=== PATIENT | male | born 1935 | race Caucasian/White ===

== ENCOUNTER 2019-03-31 17:52 | Inpatient (IN) | payer MEDICARE ==
[~2019-03-31] VITALS: Ht 175.3 cm; Wt 75.3 kg
--- NOTE | 2019-03-31 17:52 | NUR ---
Patient is AOx4, respiration:easy c/o dizziness for 1 month. On arrival, patient immediately wanted to use the phone/cellphone. "I am expecting a call. Can I use the phone before you examine me?" per patient's verbalization. Comfort and safety measures maintained.
--- NOTE | 2019-03-31 18:11 | NUR ---
Patient is heard using his cellphone still, NAD, pending MD evaluation.
--- NOTE | 2019-03-31 18:44 | NUR ---
Dr Page is at bedside, MSE in progress.
[2019-03-31] MEDS ORDERED: IV NORMAL SALINE 1000 ML BAG IV ONE (18:45)
--- NOTE | 2019-03-31 18:57 | NUR ---
Patient ambulated to bathroom with slow steady gait, unassisted, pending results and disposition
[2019-03-31 19:01] LABS: BASOPHILS % (AUTO) 0.2 % (0.0-2.0); EOSINOPHILS # (AUTO) 0.1 K/uL (0.0-0.7); EOSINOPHILS % (AUTO) 0.9 % (0.0-7.0); HEMATOCRIT 45.7 % (36.7-47.1); HEMOGLOBIN 15.3 g/dL (12.5-16.3); LYMPHOCYTES # (AUTO) 1.1 K/uL (20.0-40.0); LYMPHOCYTES % (AUTO) 13.4 % (20.5-51.5); MEAN CORPUSCULAR HEMOGLOBIN 31.4 uug (23.8-33.4); MEAN CORPUSCULAR HGB CONC 33 g/dL (32.5-36.3); MEAN CORPUSCULAR VOLUME 94.1 fL (73.0-96.2); MONOCYTES # (AUTO) 0.7 K/uL (2.0-10.0); MONOCYTES % (AUTO) 8.6 % (0.0-11.0); NEUTROPHILS # (AUTO) 6.1 K/uL (1.8-8.9); NEUTROPHILS % (AUTO) 76.9 % (38.5-71.5); PLATELET COUNT (AUTO) 218 K/uL (152-348); RED BLOOD CELL COUNT(AUTO) 4.86 MIL/uL (4.06-5.63)
--- NOTE | 2019-03-31 19:01 | NUR ---
still for IV fluids, CT scan, chest x-ray, endorsed to CLARK Mcgee accordingly
--- NOTE | 2019-03-31 19:05 | NUR ---
Xray at bedside.
[2019-03-31 19:06] LABS: *BILIRUBIN,URIN NEGATIVE (NEGATIVE); *CLARITY,URINE CLEAR (CLEAR); *COLOR,URINE YELLOW (YELLOW); *KETONES,URINE 1+ (NEGATIVE); *UROBILINOGEN,URINE 0.2 E.U./dl (NORMAL); LEUKOCYTE ESTERASE ,URINE NEGATIVE (NEGATIVE); NITRITE, URINE NEGATIVE (NEGATIVE); PH,URINE 6.5 (5.0-8.0); UGLUCOSE NEGATIVE (NEGATIVE)
--- NOTE | 2019-03-31 19:08 | NUR ---
Pt out of ER for CT.
[2019-03-31 19:18] LABS: BILIRUBIN,DIRECT 0.2 mg/dL (0.0-0.2); CREATININE 1.1 mg/dL (0.6-1.3); POTASSIUM 3.7 mmol/L (3.5-5.1); TOTAL PROTEIN, SERUM 7.4 g/dL (6.4-8.2)
--- NOTE | 2019-03-31 19:18 | NUR ---
Pt back to ER from CT.
[2019-03-31] MEDS ORDERED: ONDANSETRON 4 MG/2 ML VIAL ONE (19:26)
[2019-03-31] MEDS ORDERED: MECLIZINE HCL 25 MG TABLET ONE (19:27)
[2019-03-31 19:29] LABS: *BLOOD, URINE TRACE (NEGATIVE)
[2019-03-31] MEDS ORDERED: MECLIZINE HCL 25 MG TABLET PO ONE (19:30)
[2019-03-31] MEDS ORDERED: ONDANSETRON 4 MG/2 ML VIAL IV ONE (19:30)
[2019-03-31 19:37] LABS: MUCUS,URINE MODERATE /LPF (0-FEW); RBC,URINE 0-3 /HPF (0-3); WBC,URINE 0-3 /HPF (0-3)
[2019-03-31 19:44] LABS: THYROID STIMULATING HORMONE 2.262 mIU/mL (0.358-3.740)
--- NOTE | 2019-03-31 20:29 | NUR ---
Called [facility] to page Geovanny Cavazos NP
--- NOTE | 2019-03-31 20:30 | NUR ---
Pt provided with Peanut butter jelly sandwich per pt request.
--- NOTE | 2019-03-31 20:40 | NUR ---
Noman Cavazos TRAFFIC ADMINISTRATOR at bedside.
--- NOTE | 2019-03-31 20:57 | NUR ---
Report given to Dalia RODAS Medsurg.
[2019-03-31 21:03] LABS: *AMPHETAMINE, URINE NEGATIVE (NEGATIVE); *BARBITURATE, URINE NEGATIVE (NEGATIVE); *CANNABINOID, URINE NEGATIVE (NEGATIVE); *COCCAINE, URINE NEGATIVE (NEGATIVE); *OPIATE, URINE NEGATIVE (NEGATIVE); *PHENCYCLIDINE SCREEN,URINE NEGATIVE (NEGATIVE)
[2019-03-31 21:07] LABS: ETHANOL < 3 MG/DL (0-0)
[2019-03-31 21:08] LABS: ACETAMINOPHEN < 2.0 ug/mL (10-30)
[2019-03-31] MEDS ORDERED: LORAZEPAM 0.5 MG TABLET PO ONE (21:15)
[2019-03-31] MEDS ORDERED: LORAZEPAM 1 MG TABLET ONE (21:15)
[2019-03-31 21:47] VITALS: BP 129/75
[2019-03-31] MEDS ORDERED: ACETAMINOPHEN 325 MG TABLET PO PRN (22:00)
[2019-03-31] MEDS ORDERED: MAGNESIUM HYDROXIDE 30 ML LIQUID UDC PO PRN (22:00)
[2019-03-31] MEDS ORDERED: HYDROCODONE/APAP 5-325MG TABLET PO PRN (22:00)
[2019-03-31] MEDS ORDERED: Z GUARD REMEDY PASTE 57 GM TUBE TOP PRN (22:00)
[2019-03-31] MEDS ORDERED: MORPHINE SULFATE 2 MG/1 ML DISP.SYRIN IV PRN (22:00)
--- NOTE | 2019-03-31 22:20 | NUR ---
received report from night nurse.
[2019-03-31] MEDS: ENOXAPARIN SODIUM 40 MG/0.4 ML DISP.SYRIN SQ SCH (22:29)
[2019-03-31] MEDS: TEMAZEPAM 15 MG CAPSULE PO PRN (22:29)
[2019-03-31] MEDS: IV NS 1000 ML 1,000 ML IV PRN (22:30)
--- NOTE | 2019-04-01 05:07 | NUR ---
patient received in bed watching TV. Completed admissions process. Patient refused to change into hospital gown and refused skin check. compliant with medications administration for the night and temazepam requested by patient and administered. pharmacy contacted for medication reconciliation but closed for the night. will endorse to morning nurse to f/u with pharmacy as they open at 9am. all needs met. will continue to monitor and endorse care accordingly.
[2019-04-01 05:22] VITALS: BP 137/81
[2019-04-01] MEDS: ONDANSETRON 4 MG/2 ML VIAL IV PRN ×2 (05:37→15:00)
[2019-04-01] MEDS: PANTOPRAZOLE SODIUM 40 MG TABLET.DR PO SCH (06:11)
[2019-04-01 06:52] LABS: BASOPHILS % (AUTO) 0.3 % (0.0-2.0); EOSINOPHILS # (AUTO) 0.2 K/uL (0.0-0.7); EOSINOPHILS % (AUTO) 3.2 % (0.0-7.0); HEMATOCRIT 42.6 % (36.7-47.1); HEMOGLOBIN 13.8 g/dL (12.5-16.3); LYMPHOCYTES # (AUTO) 1.9 K/uL (20.0-40.0); LYMPHOCYTES % (AUTO) 33.9 % (20.5-51.5); MEAN CORPUSCULAR HEMOGLOBIN 31.5 uug (23.8-33.4); MEAN CORPUSCULAR HGB CONC 32 g/dL (32.5-36.3); MEAN CORPUSCULAR VOLUME 97.4 fL (73.0-96.2); MONOCYTES # (AUTO) 0.8 K/uL (2.0-10.0); MONOCYTES % (AUTO) 13.3 % (0.0-11.0); NEUTROPHILS # (AUTO) 2.8 K/uL (1.8-8.9); NEUTROPHILS % (AUTO) 49.3 % (38.5-71.5); PLATELET COUNT (AUTO) 178 K/uL (152-348); RED BLOOD CELL COUNT(AUTO) 4.37 MIL/uL (4.06-5.63); WHITE BLOOD COUNT (AUTO) 5.7 K/uL (3.6-10.2)
[2019-04-01 07:18] LABS: BILIRUBIN,TOTAL 0.9 mg/dL (0.2-1.0); MAGNESIUM 2.1 mg/dL (1.8-2.4); PHOSPHOROUS 2.8 mg/dL (2.5-4.9); POTASSIUM 4.2 mmol/L (3.5-5.1); TOTAL PROTEIN, SERUM 6.2 g/dL (6.4-8.2)
[2019-04-01 08:17] LABS: THYROID STIMULATING HORMONE 3.324 mIU/mL (0.358-3.740)
--- NOTE | 2019-04-01 08:30 | NUR ---
PATIENT IS STILL WEARING HIS CLOTHES FROM HOME REFUSED TO CHANGE INTO A HOSPITAL GOWN AT THIS TIME PATIENTS WISHES RESPECTED.
[2019-04-01] MEDS: MECLIZINE HCL 25 MG TABLET PO PRN ×2 (08:48→17:05)
[2019-04-01] MEDS: METOCLOPRAMIDE HCL 10 MG/2 ML VIAL IV PRN ×2 (08:48→17:05)
--- NOTE | 2019-04-01 08:48 | NUR ---
PATIENT C/O FEELING DIZZY AND HAS NAUSEA [facility] [employer] ORDER CLERK NOTIFIED WITH NEW ORDERS ANTIVERT AND REGLAN GIVEN ORDERED AND LUIS OBSERVE.
[2019-04-01] MEDS: LORAZEPAM 2 MG/1 ML VIAL IV PRN ×2 (09:10→20:55)
--- NOTE | 2019-04-01 09:10 | NUR ---
PATIENT IS VERY ANXIOUS CALLING EVERY 5 MINS FOR ONE THING OR THE OTHER AND RESTLESS SEEN BY ARMANDO BOWDEN WITH ORDER ATIVAN GIVEN ORDERED WILL OBSERVE.
[2019-04-01 11:45] VITALS: BP 135/76
[2019-04-01] MEDS: LOSARTAN POTASSIUM 25 MG TABLET PO SCH (12:58)
--- NOTE | 2019-04-01 13:30 | NUR ---
PATIENT STATED TAKES MEDICATIONS FOR BLOOD PRESSURE AND CHOLESTEROL BUT DOES NOT REMEMBER THE NAMES [facility] AND SHE GAVE ME THE NAMES OF LORSARTAN AND ATROVASTATIN AND THE DOSAGES CALLED [facility] VP [employer]ET[employer] WITH ORDERS.
--- NOTE | 2019-04-01 14:43 | NUR ---
PATIENT REASSIGNMENT REPORT GIVEN TO BREE FOR CONTINUING CARE.
[2019-04-01] MEDS ORDERED: ATOR10TA PO (14:52)
[2019-04-01] MEDS ORDERED: LOSA25TA3 PO (14:52)
[2019-04-01 15:49] VITALS: BP 132/84
[2019-04-01] MEDS: IV NS 1000 ML 1,000 ML IV PRN (18:40)
[2019-04-01 20:33] VITALS: BP 120/64
[2019-04-01] MEDS: ENOXAPARIN SODIUM 40 MG/0.4 ML DISP.SYRIN SQ SCH (20:55)
[2019-04-01] MEDS ORDERED: ATORVASTATIN 10 MG TABLET PO SCH (21:00)
[2019-04-01] MEDS: TEMAZEPAM 15 MG CAPSULE PO PRN (22:23)
[2019-04-02] MEDS: ONDANSETRON 4 MG/2 ML VIAL IV PRN ×2 (02:41→09:09)
[2019-04-02] MEDS: MECLIZINE HCL 25 MG TABLET PO PRN ×3 (02:41→17:21)
[2019-04-02 04:53] VITALS: BP 135/76
[2019-04-02] MEDS: PANTOPRAZOLE SODIUM 40 MG TABLET.DR PO SCH (06:31)
--- NOTE | 2019-04-02 06:48 | NUR ---
PATIENT SLEPT WELL LAST NIGHT. THIS MORNING DOES NOT COMPLAIN OF ANY DIZZINESS OR NAUSEA. PATIENT IS ALERT AND IS IN NO DISTRESS. FALL PRECAUTIONS OBSERVED. ENDORSED TO AM NURSE.
[2019-04-02 06:51] LABS: BASOPHILS % (AUTO) 0.2 % (0.0-2.0); EOSINOPHILS # (AUTO) 0.2 K/uL (0.0-0.7); EOSINOPHILS % (AUTO) 3.3 % (0.0-7.0); HEMATOCRIT 42.2 % (36.7-47.1); HEMOGLOBIN 13.9 g/dL (12.5-16.3); LYMPHOCYTES # (AUTO) 1.7 K/uL (20.0-40.0); LYMPHOCYTES % (AUTO) 29.6 % (20.5-51.5); MEAN CORPUSCULAR HEMOGLOBIN 31.9 uug (23.8-33.4); MEAN CORPUSCULAR HGB CONC 33 g/dL (32.5-36.3); MEAN CORPUSCULAR VOLUME 97.1 fL (73.0-96.2); MONOCYTES # (AUTO) 0.7 K/uL (2.0-10.0); MONOCYTES % (AUTO) 11.5 % (0.0-11.0); NEUTROPHILS # (AUTO) 3.2 K/uL (1.8-8.9); NEUTROPHILS % (AUTO) 55.4 % (38.5-71.5); PLATELET COUNT (AUTO) 185 K/uL (152-348); RED BLOOD CELL COUNT(AUTO) 4.35 MIL/uL (4.06-5.63); WHITE BLOOD COUNT (AUTO) 5.7 K/uL (3.6-10.2)
[2019-04-02 07:06] LABS: CARBON DIOXIDE 26 mmol/L (21-32); CHLORIDE 107 mmol/L (98-107); CREATININE 0.9 mg/dL (0.6-1.3); GLUCOSE 94 mg/dL (74-106); POTASSIUM 4.1 mmol/L (3.5-5.1); UREA NITROGEN, BLOOD 14 mg/dL (7-18)
[2019-04-02] MEDS: LOSARTAN POTASSIUM 25 MG TABLET PO SCH (09:04)
[2019-04-02] MEDS: METOCLOPRAMIDE HCL 10 MG/2 ML VIAL IV PRN ×2 (11:05→17:21)
[2019-04-02 12:00] VITALS: BP 142/84
[2019-04-02 16:00] VITALS: BP 153/90
--- NOTE | 2019-04-02 18:00 | NUR ---
RECEIVED DISCHARGE ORDER TO HOME VIA PRIVATE CAR WITH FRIEND SCOTT, DISCHARGE INSTRUCTION GIVEN AND VERBALIZED UNDERSTANDING. BELONGINGS ACCOUNTED FOR AND SIGNED, IV AND ID BAND REMOVED, QUESTION AND CONCERNS ADDRESSED, NO SOB NOTED NO C/O PAIN. PATIENT DISCHARGE WITH SATISFACTION
== END 2019-04-02 17:55 | disposition home health service (06) | DRG 641 ==
LOC: ER 17:54 → MEDSURG3 21:20
PROVIDERS: ADMIT Nurse Practitioner Acute Care; ATTEND Nurse Practitioner Acute Care
DX: E86.0 Dehydration (principal); D68.59 Other primary thrombophilia; R64 Cachexia; J98.11 Atelectasis; R42 Dizziness and giddiness; F39 Unspecified mood [affective] disorder; F41.9 Anxiety disorder, unspecified; K21.9 Gastro-esophageal reflux disease without esophagitis; F09 Unspecified mental disorder due to known physiological condition; E78.5 Hyperlipidemia, unspecified; I10 Essential (primary) hypertension; I70.0 Atherosclerosis of aorta; E78.00 Pure hypercholesterolemia, unspecified; Z74.09 Other reduced mobility; B34.9 Viral infection, unspecified; R11.2 Nausea with vomiting, unspecified
CPT/HCPCS: 36415; 70030-TC; 70450; 71045; 80307; 83550; 83605; 83735; 84100; 84443; 85025; 85730; 87040; 87086; 93005; A4663; G0378; G0480; G0480-TC; J1650; J2060; J2405; J2765; J7030; J8597

== ENCOUNTER 2019-05-12 17:51 | Emergency (ER) | payer MEDICARE ==
[~2019-05-12] VITALS: Ht 172.7 cm; Wt 68.9 kg
--- NOTE | 2019-05-12 18:36 | NUR ---
Patient discharged to home in stable conditon. Written and verbal after care instructions given. Patient verbalizes understanding of instructions. Patient ambulated with stable gait.
[2019-05-12 18:38] VITALS: BP 145/89
== END 2019-05-12 18:38 | disposition home or self-care (01) ==
LOC: ER 17:53
DX: T16.2XXA Foreign body in left ear, initial encounter (principal); Y93.89 Activity, other specified; Y92.89 Other specified places as the place of occurrence of the external cause; Y99.8 Other external cause status
CPT/HCPCS: A4663

== ENCOUNTER 2019-05-17 16:50 | Emergency (ER) | payer MEDICARE ==
[~2019-05-17] VITALS: Ht 175.3 cm; Wt 72.6 kg
--- NOTE | 2019-05-17 17:13 | NUR ---
PT IS IN ROOM #1A. DR BEATTY EVALUATED THE PT.
--- NOTE | 2019-05-17 17:53 | NUR ---
PT WAS D/C'd TO HOME. D/C INSTRUCTIONS GIVEN TO THE PT.
[2019-05-17 17:54] VITALS: BP 142/81
== END 2019-05-17 17:54 | disposition home or self-care (01) ==
LOC: ER 16:53
DX: S02.2XXA Fracture of nasal bones, initial encounter for closed fracture (principal); E78.5 Hyperlipidemia, unspecified; K21.9 Gastro-esophageal reflux disease without esophagitis; F32.9 Major depressive disorder, single episode, unspecified; Z88.8 Allergy status to other drugs, medicaments and biological substances; Z79.899 Other long term (current) drug therapy; W17.89XA Other fall from one level to another, initial encounter; Y93.89 Activity, other specified; Y92.89 Other specified places as the place of occurrence of the external cause; Y99.8 Other external cause status
CPT/HCPCS: 70160; A4663

== ENCOUNTER 2019-12-28 10:54 | Emergency (ER) | payer MEDICARE ==
[~2019-12-28] VITALS: Ht 177.8 cm; Wt 81.6 kg
[~2019-12-28 10:54] MED LIST: ATOR10TA PO; LOSA25TA3 PO
--- NOTE | 2019-12-28 10:54 | NUR ---
Patient ambulating with steady gait. A&O x4. c/o left sided rib pain s/p mechanical fall yesterday. Denies any LOC or hitting head. Patient hard of hearing but speech is clear and able to make needs known / follow commands. Breathing even and unlabored. Denies any cough or SOB noted. No visible injuries noted. safety precautions implemented. s/r up x2
--- NOTE | 2019-12-28 10:54 | NUR ---
Dr. Aleman at bedside for MSE
[2019-12-28] MEDS ORDERED: OXYCODONE/APAP 5-325 MG TABLET ONE (11:42)
--- NOTE | 2019-12-28 11:44 | NUR ---
Patient discharged to home in stable condition. Written and verbal after care instructions given. Patient verbalizes understanding of instructions. Stressed follow up or return to ER for worsening s/s. Patient ambulated with steady gait. NAD noted. Patient's caregiver outside of ED to take patient home
[2019-12-28] MEDS ORDERED: OXYCODONE/APAP 5-325 MG TABLET PO ONE (11:45)
[2019-12-28 12:23] VITALS: BP 112/63
== END 2019-12-28 11:44 | disposition home or self-care (01) ==
LOC: ER 10:54
DX: S22.41XA Multiple fractures of ribs, right side, initial encounter for closed fracture (principal); W18.30XA Fall on same level, unspecified, initial encounter; Y92.89 Other specified places as the place of occurrence of the external cause; K21.9 Gastro-esophageal reflux disease without esophagitis; E78.00 Pure hypercholesterolemia, unspecified
CPT/HCPCS: 71101; A4663

== ENCOUNTER 2020-01-01 14:44 | Emergency (ER) | payer MEDICARE ==
[~2020-01-01] VITALS: Ht 177.8 cm; Wt 81.6 kg
--- NOTE | 2020-01-01 16:24 | NUR ---
Patient does not wish to proceed with medical care recommended by Dr. Black. Patient given information related to possible complications, up to and including , which could occur as a result of leaving the hospital at this time. Patient verbalizes understanding of risks involved due to leaving against medical advice. Patient has signed AMA form. Written and verbal after care instructions given. Patient verbalizes understanding of instructions. Stressed follow up or return to ER for worsening s/s.
== END 2020-01-01 16:27 | disposition left against medical advice (07) ==
LOC: ER 14:44
DX: S22.41XD Multiple fractures of ribs, right side, subsequent encounter for fracture with routine healing (principal); W18.30XD Fall on same level, unspecified, subsequent encounter; Z91.81 History of falling; E78.5 Hyperlipidemia, unspecified; K21.9 Gastro-esophageal reflux disease without esophagitis; M19.90 Unspecified osteoarthritis, unspecified site; I10 Essential (primary) hypertension; Z79.899 Other long term (current) drug therapy
CPT/HCPCS: 71101; A4663

== ENCOUNTER 2024-01-26 07:39 | Inpatient (IN) | payer MEDICARE ==
[~2024-01-26] VITALS: Ht 172.7 cm; Wt 72.6 kg
[2024-01-26] MEDS ORDERED: ATOR10TA PO (08:15)
[2024-01-26] MEDS ORDERED: LOSA25TA27 PO (08:15)
[2024-01-26] MEDS ORDERED: LORAZEPAM 2 MG/1 ML VIAL ONE (08:31)
[2024-01-26] MEDS: LORAZEPAM 2 MG/1 ML VIAL IV ONE (08:32)
[2024-01-26] MEDS: IV NORMAL SALINE 1000 ML BAG IV ONE (08:32)
[2024-01-26 08:43] LABS: BASOPHILS # (AUTO) 0.2 K/UL (0.0-0.2); BASOPHILS % (AUTO) 1.9 % (0.0-2.0); EOSINOPHILS # (AUTO) 0.1 K/uL (0.0-0.7); EOSINOPHILS % (AUTO) 0.9 % (0.0-7.0); HEMATOCRIT 37.4 % (36.7-47.1); HEMOGLOBIN 12.5 g/dL (12.5-16.3); LYMPHOCYTES % (AUTO) 8.9 % (20.5-51.5); MEAN CORPUSCULAR HEMOGLOBIN 31.6 uug (23.8-33.4); MEAN CORPUSCULAR HGB CONC 34 g/dL (32.5-36.3); MEAN CORPUSCULAR VOLUME 94.3 fL (73.0-96.2); MONOCYTES % (AUTO) 9.2 % (0.0-11.0); NEUTROPHILS # (AUTO) 8.7 K/uL (1.8-8.9); NEUTROPHILS % (AUTO) 79.1 % (38.5-71.5); PLATELET COUNT (AUTO) 207 K/uL (152-348); RED BLOOD CELL COUNT(AUTO) 3.97 MIL/uL (4.06-5.63); RED CELL DISTRIBUTION WIDTH 14.5 % (12.1-16.2); WHITE BLOOD COUNT (AUTO) 10.9 K/uL (3.6-10.2)
[2024-01-26 08:44] LABS: DIFFERENTIAL COMMENT 1
[2024-01-26 08:53] LABS: CALCIUM 9.2 mg/dL (8.5-10.1); CARBON DIOXIDE 27 mmol/L (21-32); CHLORIDE 103 mmol/L (98-107); CREATININE 1.5 mg/dL (0.6-1.3); GLUCOSE 139 mg/dL (74-106); POTASSIUM 4.4 mmol/L (3.5-5.1); SODIUM SERUM 140 mmol/L (136-145); UREA NITROGEN, BLOOD 30 mg/dL (7-18)
[2024-01-26 08:57] LABS: *BILIRUBIN,URIN NEGATIVE (NEGATIVE); *BLOOD, URINE NEGATIVE (NEGATIVE); *CLARITY,URINE CLEAR (CLEAR); *COLOR,URINE YELLOW (YELLOW); *KETONES,URINE 1+ (NEGATIVE); *PROTEIN,URINE TRACE (NEGATIVE); *UROBILINOGEN,URINE 0.2 E.U./dl (NORMAL); LEUKOCYTE ESTERASE ,URINE NEGATIVE (NEGATIVE); NITRITE, URINE NEGATIVE (NEGATIVE); UGLUCOSE NEGATIVE (NEGATIVE)
[2024-01-26 08:58] LABS: BACTERIA,URINE FEW /HPF (NONE SEEN); WBC,URINE 0-3 /HPF (0-3)
[2024-01-26 09:09] LABS: ALANINE AMINOTRANSFERASE 41 U/L (16-63); ALBUMIN 3.5 g/dL (3.4-5.0); ALKALINE PHOSPHATASE 100 U/L (50-136); ASPARTATE AMINOTRANSFERASE 61 U/L (15-37); BILIRUBIN,DIRECT 0.4 mg/dL (0.0-0.2); BILIRUBIN,TOTAL 1.7 mg/dL (0.2-1.0); NT-PRO BNP 972 pg/mL (0-125); TOTAL PROTEIN, SERUM 7.1 g/dL (6.4-8.2)
[2024-01-26 09:20] LABS: BAND % (MANUAL) 5 % (0-10); EOSINOPHILS % (MANUAL) 1 % (0-8); LYMPHOCYTES % (MANUAL) 14 % (20-40); METAMYELOCYTES % 2 % (0-1); MONOCYTES % (MANUAL) 9 % (2-10); NEUTROPHILS % (MANUAL) 69 % (42-75); PLATELET ESTIMATE ADEQUATE
[2024-01-26 11:52] VITALS: BP 155/82; TEMP 97.3; O2SAT 95
[2024-01-26] MEDS ORDERED: LAMO200T10 PO (11:52)
[2024-01-26] MEDS ORDERED: PHEN15TA15 PO (11:55)
[2024-01-26] MEDS ORDERED: ONDANSETRON 4 MG/2 ML VIAL IV PRN (13:45)
[2024-01-26] MEDS: LOSARTAN POTASSIUM 25 MG TABLET PO SCH (13:45)
[2024-01-26] MEDS: LAMOTRIGINE 200 MG TABLET PO SCH (13:45)
[2024-01-26 14:10] VITALS: BP 140/84; TEMP 97.2; O2SAT 98
[2024-01-26 14:12] VITALS: BP 141/74; O2SAT 95
[2024-01-26 14:14] VITALS: BP 123/89; O2SAT 95
[2024-01-26 16:20] VITALS: O2SAT 95
[2024-01-26] MEDS: IV NS 1000 ML 1,000 ML IV PRN (17:53)
[2024-01-26 19:00] VITALS: BP 150/89; TEMP 97.9; O2SAT 95
[2024-01-26] MEDS: ENOXAPARIN SODIUM 40 MG/0.4 ML DISP.SYRIN SQ SCH (20:39)
[2024-01-26] MEDS: ACETAMINOPHEN 325 MG TABLET PO PRN (20:42)
[2024-01-27] VITALS (7 sets, daily range): BP systolic 128–171; BP diastolic 87–94; TEMP 97.7–98.7; O2SAT 94–97
[2024-01-27] MEDS: ZOLPIDEM 5 MG TABLET PO PRN (00:28)
[2024-01-27 06:46] LABS: BASOPHILS % (AUTO) 0.3 % (0.0-2.0); EOSINOPHILS % (AUTO) 0.5 % (0.0-7.0); HEMATOCRIT 37.1 % (36.7-47.1); HEMOGLOBIN 12.5 g/dL (12.5-16.3); LYMPHOCYTES # (AUTO) 1.3 K/uL (0.8-4.8); LYMPHOCYTES % (AUTO) 15.1 % (20.5-51.5); MEAN CORPUSCULAR HEMOGLOBIN 31.4 uug (23.8-33.4); MEAN CORPUSCULAR HGB CONC 34 g/dL (32.5-36.3); MEAN CORPUSCULAR VOLUME 93.1 fL (73.0-96.2); MONOCYTES # (AUTO) 1.2 K/uL (0.1-1.30); MONOCYTES % (AUTO) 14.5 % (0.0-11.0); NEUTROPHILS # (AUTO) 5.8 K/uL (1.8-8.9); NEUTROPHILS % (AUTO) 69.6 % (38.5-71.5); PLATELET COUNT (AUTO) 218 K/uL (152-348); RED BLOOD CELL COUNT(AUTO) 3.99 MIL/uL (4.06-5.63); RED CELL DISTRIBUTION WIDTH 14.1 % (12.1-16.2); WHITE BLOOD COUNT (AUTO) 8.3 K/uL (3.6-10.2)
[2024-01-27 06:54] LABS: DIFFERENTIAL COMMENT 1
[2024-01-27] MEDS ORDERED: CLON2TAB PO (06:54)
[2024-01-27 07:05] LABS: CALCIUM 8.7 mg/dL (8.5-10.1); CARBON DIOXIDE 26 mmol/L (21-32); CHLORIDE 104 mmol/L (98-107); CREATININE 1.3 mg/dL (0.6-1.3); GLUCOSE 132 mg/dL (74-106); PHOSPHOROUS 2.9 mg/dL (2.5-4.9); POTASSIUM 4.2 mmol/L (3.5-5.1); SODIUM SERUM 138 mmol/L (136-145); UREA NITROGEN, BLOOD 22 mg/dL (7-18)
[2024-01-27] MEDS ORDERED: ATORVASTATIN 10 MG TABLET PO SCH (09:00)
[2024-01-27] MEDS: CLONAZEPAM 1 MG TABLET PO SCH (09:55)
[2024-01-27] MEDS: PHENELZINE SULFATE 15 MG PO SCH (09:56)
[2024-01-27] MEDS: QUETIAPINE FUMARATE 25 MG TABLET PO ONE (13:41)
[2024-01-27] MEDS ORDERED: PHENELZINE SULFATE PO SCH (13:45)
[2024-01-27] MEDS: ATORVASTATIN 10 MG TABLET PO SCH (20:25)
[2024-01-27] MEDS: TRAZODONE 50 MG TABLET PO SCH (21:10)
[2024-01-28] VITALS (8 sets, daily range): BP systolic 117–152; BP diastolic 64–87; TEMP 97.6–98.8; O2SAT 91–98
[2024-01-28] MEDS ORDERED: ZOLPIDEM 5 MG TABLET PO PRN (09:45)
[2024-01-28] MEDS: LORAZEPAM 1 MG TABLET PO PRN (14:28)
[2024-01-28 18:00] LABS: BASOPHILS # (AUTO) 0.1 K/UL (0.0-0.2); BASOPHILS % (AUTO) 1.5 % (0.0-2.0); EOSINOPHILS # (AUTO) 0.1 K/uL (0.0-0.7); EOSINOPHILS % (AUTO) 1.4 % (0.0-7.0); HEMOGLOBIN 12.1 g/dL (12.5-16.3); LYMPHOCYTES # (AUTO) 1.2 K/uL (0.8-4.8); LYMPHOCYTES % (AUTO) 13.5 % (20.5-51.5); MEAN CORPUSCULAR HEMOGLOBIN 31.5 uug (23.8-33.4); MEAN CORPUSCULAR HGB CONC 34 g/dL (32.5-36.3); MEAN CORPUSCULAR VOLUME 93.7 fL (73.0-96.2); MONOCYTES # (AUTO) 0.9 K/uL (0.1-1.30); NEUTROPHILS # (AUTO) 6.7 K/uL (1.8-8.9); NEUTROPHILS % (AUTO) 73.6 % (38.5-71.5); PLATELET COUNT (AUTO) 201 K/uL (152-348); RED BLOOD CELL COUNT(AUTO) 3.84 MIL/uL (4.06-5.63); RED CELL DISTRIBUTION WIDTH 14.3 % (12.1-16.2); WHITE BLOOD COUNT (AUTO) 9.1 K/uL (3.6-10.2)
[2024-01-28 18:04] LABS: DIFFERENTIAL COMMENT 1
[2024-01-28 18:17] LABS: CALCIUM 8.4 mg/dL (8.5-10.1); CARBON DIOXIDE 24 mmol/L (21-32); CHLORIDE 107 mmol/L (98-107); CREATININE 1.2 mg/dL (0.6-1.3); GLUCOSE 96 mg/dL (74-106); MAGNESIUM 2.1 mg/dL (1.8-2.4); PHOSPHOROUS 2.6 mg/dL (2.5-4.9); POTASSIUM 3.5 mmol/L (3.5-5.1); SODIUM SERUM 143 mmol/L (136-145); UREA NITROGEN, BLOOD 20 mg/dL (7-18)
[2024-01-29] MEDS: QUETIAPINE FUMARATE 25 MG TABLET PO PRN (00:03)
[2024-01-29] MEDS: OLANZAPINE 10 MG VIAL IM ONE (00:54)
[2024-01-29 04:30] VITALS: O2SAT 98
[2024-01-29 05:02] VITALS: BP 144/112; TEMP 98.9; O2SAT 91
[2024-01-29] MEDS: LORAZEPAM 2 MG/1 ML VIAL IM ONE (05:24)
[2024-01-29] MEDS: diphenhydrAMINE 50 MG/1 ML VIAL IM ONE (05:25)
[2024-01-29 06:51] LABS: BASOPHILS % (AUTO) 0.1 % (0.0-2.0); EOSINOPHILS % (AUTO) 0.4 % (0.0-7.0); HEMATOCRIT 37.2 % (36.7-47.1); HEMOGLOBIN 12.8 g/dL (12.5-16.3); LYMPHOCYTES # (AUTO) 0.8 K/uL (0.8-4.8); LYMPHOCYTES % (AUTO) 7.8 % (20.5-51.5); MEAN CORPUSCULAR HEMOGLOBIN 32.1 uug (23.8-33.4); MEAN CORPUSCULAR HGB CONC 34 g/dL (32.5-36.3); MEAN CORPUSCULAR VOLUME 93.7 fL (73.0-96.2); MONOCYTES # (AUTO) 1.1 K/uL (0.1-1.30); MONOCYTES % (AUTO) 10.6 % (0.0-11.0); NEUTROPHILS # (AUTO) 8.2 K/uL (1.8-8.9); NEUTROPHILS % (AUTO) 81.1 % (38.5-71.5); PLATELET COUNT (AUTO) 217 K/uL (152-348); RED BLOOD CELL COUNT(AUTO) 3.98 MIL/uL (4.06-5.63); RED CELL DISTRIBUTION WIDTH 14.3 % (12.1-16.2); WHITE BLOOD COUNT (AUTO) 10.1 K/uL (3.6-10.2)
[2024-01-29 07:07] LABS: CALCIUM 8.5 mg/dL (8.5-10.1); CARBON DIOXIDE 22 mmol/L (21-32); CHLORIDE 106 mmol/L (98-107); CREATININE 1.1 mg/dL (0.6-1.3); GLUCOSE 104 mg/dL (74-106); MAGNESIUM 1.8 mg/dL (1.8-2.4); PHOSPHOROUS 2.6 mg/dL (2.5-4.9); POTASSIUM 3.5 mmol/L (3.5-5.1); SODIUM SERUM 140 mmol/L (136-145); UREA NITROGEN, BLOOD 18 mg/dL (7-18)
[2024-01-29 07:13] LABS: DIFFERENTIAL COMMENT 1
[2024-01-29 07:47] VITALS: BP 134/84; TEMP 97.3; O2SAT 97
[2024-01-29] MEDS: PIPERACILLIN SODIUM/TAZOBACTAM 3.375 G in IV DEXTROSE 5% 50 ML IV SCH (10:43)
[2024-01-29] MEDS ORDERED: TEMAZEPAM 7.5 MG CAPSULE PO PRN (11:30)
[2024-01-29] MEDS: risperiDONE-M 0.5 MG TAB.RAPDIS PO SCH (11:30)
[2024-01-29] MEDS ORDERED: LORAZEPAM 0.5 MG TABLET PO PRN (11:30)
[2024-01-29 12:05] VITALS: O2SAT 97
[2024-01-29] MEDS: LORAZEPAM 0.5 MG TABLET PO SCH (13:00)
[2024-01-29] MEDS: PIPERACILLIN SODIUM/TAZOBACTAM 3.375 G in IV DEXTROSE 5% 100 ML IV SCH (13:40)
[2024-01-29 16:00] VITALS: BP 129/85; TEMP 97.2; O2SAT 96
[2024-01-29] MEDS: LAMOTRIGINE 25 MG TABLET PO SCH (16:53)
[2024-01-29 20:00] VITALS: BP 141/92; TEMP 97.9; O2SAT 94
[2024-01-30] VITALS (33 sets, daily range): BP systolic 85–146; BP diastolic 33–96; TEMP 98.1–102.1; O2SAT 50–100
[2024-01-30] MEDS: ACETAMINOPHEN 650 MG SUPP.RECT RC PRN (02:21)
[2024-01-30] MEDS: LORAZEPAM 2 MG/1 ML VIAL IV ONE (03:48)
[2024-01-30 06:53] LABS: BASOPHILS % (AUTO) 0.3 % (0.0-2.0); EOSINOPHILS # (AUTO) 0.1 K/uL (0.0-0.7); EOSINOPHILS % (AUTO) 0.5 % (0.0-7.0); HEMOGLOBIN 12.4 g/dL (12.5-16.3); LYMPHOCYTES # (AUTO) 1.3 K/uL (0.8-4.8); LYMPHOCYTES % (AUTO) 10.9 % (20.5-51.5); MEAN CORPUSCULAR HEMOGLOBIN 31.6 uug (23.8-33.4); MEAN CORPUSCULAR HGB CONC 33 g/dL (32.5-36.3); MEAN CORPUSCULAR VOLUME 94.6 fL (73.0-96.2); MONOCYTES # (AUTO) 1.4 K/uL (0.1-1.30); MONOCYTES % (AUTO) 11.8 % (0.0-11.0); NEUTROPHILS # (AUTO) 9.2 K/uL (1.8-8.9); NEUTROPHILS % (AUTO) 76.5 % (38.5-71.5); PLATELET COUNT (AUTO) 212 K/uL (152-348); RED BLOOD CELL COUNT(AUTO) 3.91 MIL/uL (4.06-5.63); RED CELL DISTRIBUTION WIDTH 14.1 % (12.1-16.2); WHITE BLOOD COUNT (AUTO) 12.1 K/uL (3.6-10.2)
[2024-01-30 07:02] LABS: CALCIUM 8.4 mg/dL (8.5-10.1); CARBON DIOXIDE 21 mmol/L (21-32); CHLORIDE 106 mmol/L (98-107); CREATININE 0.9 mg/dL (0.6-1.3); GLUCOSE 114 mg/dL (74-106); MAGNESIUM 2.1 mg/dL (1.8-2.4); PHOSPHOROUS 2.7 mg/dL (2.5-4.9); SODIUM SERUM 141 mmol/L (136-145); UREA NITROGEN, BLOOD 18 mg/dL (7-18)
[2024-01-30 07:03] LABS: DIFFERENTIAL COMMENT 1
[2024-01-30 07:10] LABS: POTASSIUM 3.8 mmol/L (3.5-5.1)
[2024-01-30] MEDS: REMEDY ESSENTIAL ZINC PASTE 113 GM TP PRN (08:46)
[2024-01-30 10:07] LABS: ABG BASE EXCESS -4.6 mmol/L (-2.0-3.0); ABG HCO3 18.2 mmol/L (21.0-28.0); ABG PCO2 27.7 mmHg (35.0-48.0); ABG PH 7.436 (7.350-7.450); ABG PO2 75.8 mmHg (83.0-108.0); ABG SITE LEFT BRACHIAL; ABG TOTAL HEMOGLOBIN 13.4 G/dL (13.5-17.5); AaDO2 95.8 mmHg; COHb 0.9 % (0.5-1.5); MetHb 0.3 % (0.0-1.5); O2Hb 94.9 % (94.0-98.0)
[2024-01-30 13:10] LABS: HIV-1 p24 ANTIGEN NON REACTIVE (NONREACTIVE); HIV-1/2 ANTIBODY NON REACTIVE (NONREACTIVE)
[2024-01-30] MEDS: ALBUTEROL SULFATE 1.25 MG/3 ML NEBU NEB PRN (13:25)
[2024-01-30] MEDS: IPRATROPIUM BROMIDE 0.5 MG/2.5 ML NEBU NEB PRN (13:25)
[2024-01-30 14:40] LABS: *BILIRUBIN,URIN 1+ (NEGATIVE); *BLOOD, URINE 3+ (NEGATIVE); *CLARITY,URINE SLIGHTLY CLOUDY (CLEAR); *COLOR,URINE DARK YELLOW (YELLOW); *KETONES,URINE 3+ (NEGATIVE); *PROTEIN,URINE 3+ (NEGATIVE); *UROBILINOGEN,URINE 0.2 E.U./dl (NORMAL); LEUKOCYTE ESTERASE ,URINE NEGATIVE (NEGATIVE); NITRITE, URINE NEGATIVE (NEGATIVE); PH,URINE 5.5 (5.0-8.0); UGLUCOSE NEGATIVE (NEGATIVE)
[2024-01-30 15:10] LABS: BACTERIA,URINE FEW /HPF (NONE SEEN); RBC,URINE 80-100 /HPF (0-3); SQUAMOUS EPITHELIAL CELL,UR FEW /HPF (NONE SEEN); WBC,URINE 0-3 /HPF (0-3)
[2024-01-30] MEDS: OLANZAPINE 10 MG VIAL IM ONE ×2 (19:00→21:35)
[2024-01-30] MEDS: IV NORMAL SALINE 500 ML IV ONE (19:10)
[2024-01-30] MEDS: AMIODARONE HCL IV 150 MG in IV DEXTROSE 5% 100 ML IV ONE (19:15)
[2024-01-30] MEDS ORDERED: AMIODARONE HCL IV 450 MG in IV DEXTROSE 5% 250 ML IV PRN (19:15)
[2024-01-31] VITALS (51 sets, daily range): BP systolic 107–167; BP diastolic 52–139; TEMP 97.5–100.8; O2SAT 91–100
[2024-01-31 05:14] LABS: BASOPHILS # (AUTO) 0.1 K/UL (0.0-0.2); EOSINOPHILS # (AUTO) 0.1 K/uL (0.0-0.7); EOSINOPHILS % (AUTO) 1.2 % (0.0-7.0); HEMATOCRIT 34.3 % (36.7-47.1); HEMOGLOBIN 11.6 g/dL (12.5-16.3); LYMPHOCYTES # (AUTO) 1.4 K/uL (0.8-4.8); LYMPHOCYTES % (AUTO) 12.1 % (20.5-51.5); MEAN CORPUSCULAR HEMOGLOBIN 31.7 uug (23.8-33.4); MEAN CORPUSCULAR HGB CONC 34 g/dL (32.5-36.3); MEAN CORPUSCULAR VOLUME 94.1 fL (73.0-96.2); MONOCYTES # (AUTO) 1.4 K/uL (0.1-1.30); MONOCYTES % (AUTO) 12.2 % (0.0-11.0); NEUTROPHILS # (AUTO) 8.3 K/uL (1.8-8.9); NEUTROPHILS % (AUTO) 73.5 % (38.5-71.5); PLATELET COUNT (AUTO) 199 K/uL (152-348); RED BLOOD CELL COUNT(AUTO) 3.65 MIL/uL (4.06-5.63); WHITE BLOOD COUNT (AUTO) 11.3 K/uL (3.6-10.2)
[2024-01-31 05:18] LABS: DIFFERENTIAL COMMENT 1
[2024-01-31 05:37] LABS: CALCIUM 8.2 mg/dL (8.5-10.1); CARBON DIOXIDE 23 mmol/L (21-32); CHLORIDE 109 mmol/L (98-107); GLUCOSE 109 mg/dL (74-106); PHOSPHOROUS 2.7 mg/dL (2.5-4.9); POTASSIUM 4.1 mmol/L (3.5-5.1); SODIUM SERUM 142 mmol/L (136-145); UREA NITROGEN, BLOOD 25 mg/dL (7-18)
[2024-01-31] MEDS: RISPERIDONE-M 0.25 MG TAB.RAPDIS PO SCH (08:18)
[2024-01-31] MEDS ORDERED: HALOPERIDOL 5 MG TABLET PO PRN (09:00)
[2024-01-31] MEDS: HALOPERIDOL LACTATE 5 MG/1 ML VIAL IM PRN (10:29)
[2024-01-31] MEDS: diphenhydrAMINE 50 MG/1 ML VIAL IM PRN (11:34)
[2024-01-31] MEDS: FUROSEMIDE 20 MG/2 ML VIAL IV SCH (13:26)
[2024-02-01] VITALS (32 sets, daily range): BP systolic 99–181; BP diastolic 59–145; TEMP 97.6–98.7; O2SAT 95–100
[2024-02-01] MEDS: ALBUTEROL SULFATE 1.25 MG/3 ML NEBU NEB PRN (01:58)
[2024-02-01 05:00] LABS: BASOPHILS # (AUTO) 0.1 K/UL (0.0-0.2); BASOPHILS % (AUTO) 0.6 % (0.0-2.0); EOSINOPHILS # (AUTO) 0.3 K/uL (0.0-0.7); EOSINOPHILS % (AUTO) 3.3 % (0.0-7.0); HEMATOCRIT 36.4 % (36.7-47.1); HEMOGLOBIN 12.3 g/dL (12.5-16.3); LYMPHOCYTES # (AUTO) 1.3 K/uL (0.8-4.8); MEAN CORPUSCULAR HEMOGLOBIN 31.6 uug (23.8-33.4); MEAN CORPUSCULAR HGB CONC 34 g/dL (32.5-36.3); MEAN CORPUSCULAR VOLUME 93.4 fL (73.0-96.2); MONOCYTES % (AUTO) 9.8 % (0.0-11.0); NEUTROPHILS # (AUTO) 7.6 K/uL (1.8-8.9); NEUTROPHILS % (AUTO) 73.3 % (38.5-71.5); PLATELET COUNT (AUTO) 237 K/uL (152-348); RED CELL DISTRIBUTION WIDTH 14.1 % (12.1-16.2); WHITE BLOOD COUNT (AUTO) 10.3 K/uL (3.6-10.2)
[2024-02-01 05:17] LABS: CALCIUM 8.6 mg/dL (8.5-10.1); CARBON DIOXIDE 26 mmol/L (21-32); CHLORIDE 107 mmol/L (98-107); GLUCOSE 106 mg/dL (74-106); MAGNESIUM 1.9 mg/dL (1.8-2.4); POTASSIUM 3.5 mmol/L (3.5-5.1); SODIUM SERUM 145 mmol/L (136-145); UREA NITROGEN, BLOOD 18 mg/dL (7-18)
[2024-02-01] MEDS: METOPROLOL TARTRATE 50 MG TABLET PO SCH (09:12)
[2024-02-01] MEDS: QUETIAPINE FUMARATE 25 MG TABLET PO SCH (10:25)
[2024-02-02] VITALS (24 sets, daily range): BP systolic 118–159; BP diastolic 65–101; TEMP 97.6–98.2; O2SAT 93–98
[2024-02-02 04:58] LABS: BASOPHILS % (AUTO) 0.4 % (0.0-2.0); EOSINOPHILS # (AUTO) 0.2 K/uL (0.0-0.7); EOSINOPHILS % (AUTO) 2.2 % (0.0-7.0); HEMATOCRIT 36.5 % (36.7-47.1); HEMOGLOBIN 12.3 g/dL (12.5-16.3); LYMPHOCYTES # (AUTO) 1.1 K/uL (0.8-4.8); LYMPHOCYTES % (AUTO) 11.3 % (20.5-51.5); MEAN CORPUSCULAR HEMOGLOBIN 31.5 uug (23.8-33.4); MEAN CORPUSCULAR HGB CONC 34 g/dL (32.5-36.3); MEAN CORPUSCULAR VOLUME 93.7 fL (73.0-96.2); MONOCYTES # (AUTO) 0.9 K/uL (0.1-1.30); MONOCYTES % (AUTO) 9.1 % (0.0-11.0); NEUTROPHILS # (AUTO) 7.8 K/uL (1.8-8.9); PLATELET COUNT (AUTO) 263 K/uL (152-348); RED BLOOD CELL COUNT(AUTO) 3.89 MIL/uL (4.06-5.63); WHITE BLOOD COUNT (AUTO) 10.2 K/uL (3.6-10.2)
[2024-02-02 05:41] LABS: ALANINE AMINOTRANSFERASE 36 U/L (16-63); ALBUMIN 2.5 g/dL (3.4-5.0); ALKALINE PHOSPHATASE 75 U/L (50-136); ASPARTATE AMINOTRANSFERASE 34 U/L (15-37); BILIRUBIN,TOTAL 1.4 mg/dL (0.2-1.0); CARBON DIOXIDE 30 mmol/L (21-32); CHLORIDE 107 mmol/L (98-107); CREATININE 1.1 mg/dL (0.6-1.3); GLUCOSE 123 mg/dL (74-106); POTASSIUM 3.3 mmol/L (3.5-5.1); SODIUM SERUM 147 mmol/L (136-145); TOTAL PROTEIN, SERUM 6.9 g/dL (6.4-8.2); UREA NITROGEN, BLOOD 26 mg/dL (7-18)
[2024-02-02] MEDS: POTASSIUM CHLORIDE 50 ML IV SCH (08:09)
[2024-02-02] MEDS: BISACODYL 10 MG SUPP.RECT RC ONE (08:51)
[2024-02-02] MEDS: PROTEIN SUPPLEMENT (PROSTAT) 30 ML LIQUID PO SCH (09:15)
[2024-02-02] MEDS: FREE WATER VIA TUBE FEEDING GT SCH (16:00)
[2024-02-03] VITALS (14 sets, daily range): BP systolic 107–159; BP diastolic 67–98; TEMP 97.7–97.8; O2SAT 94–97
[2024-02-03] MEDS: QUETIAPINE FUMARATE 25 MG TABLET PO SCH (09:00)
[2024-02-03] MEDS ORDERED: FREE WATER VIA TUBE FEEDING GT SCH (16:00)
[2024-02-03] MEDS: QUETIAPINE FUMARATE 25 MG TABLET NG SCH (20:48)
[2024-02-03] MEDS: ATORVASTATIN 10 MG TABLET NG SCH (20:49)
[2024-02-03] MEDS: METOPROLOL TARTRATE 50 MG TABLET NG SCH (20:49)
[2024-02-04 04:00] VITALS: BP 143/74; TEMP 98.2; O2SAT 95
[2024-02-04 07:41] LABS: BASOPHILS % (AUTO) 0.2 % (0.0-2.0); EOSINOPHILS # (AUTO) 0.3 K/uL (0.0-0.7); EOSINOPHILS % (AUTO) 3.7 % (0.0-7.0); HEMATOCRIT 36.2 % (36.7-47.1); HEMOGLOBIN 12.3 g/dL (12.5-16.3); LYMPHOCYTES # (AUTO) 1.3 K/uL (0.8-4.8); MEAN CORPUSCULAR HEMOGLOBIN 31.6 uug (23.8-33.4); MEAN CORPUSCULAR HGB CONC 34 g/dL (32.5-36.3); MEAN CORPUSCULAR VOLUME 93.3 fL (73.0-96.2); MONOCYTES # (AUTO) 0.9 K/uL (0.1-1.30); MONOCYTES % (AUTO) 12.8 % (0.0-11.0); NEUTROPHILS # (AUTO) 4.5 K/uL (1.8-8.9); NEUTROPHILS % (AUTO) 65.3 % (38.5-71.5); PLATELET COUNT (AUTO) 293 K/uL (152-348); RED BLOOD CELL COUNT(AUTO) 3.88 MIL/uL (4.06-5.63)
[2024-02-04 07:55] VITALS: BP 135/75; TEMP 98.4; O2SAT 94
[2024-02-04 08:00] LABS: ALANINE AMINOTRANSFERASE 33 U/L (16-63); ALBUMIN 2.2 g/dL (3.4-5.0); ALKALINE PHOSPHATASE 81 U/L (50-136); ASPARTATE AMINOTRANSFERASE 24 U/L (15-37); BILIRUBIN,DIRECT 0.5 mg/dL (0.0-0.2); CARBON DIOXIDE 31 mmol/L (21-32); CHLORIDE 105 mmol/L (98-107); CHOLESTEROL 134 mg/dL (<200); GLUCOSE 181 mg/dL (74-106); HDL CHOLESTEROL 30 mg/dL (40-60); MAGNESIUM 2.1 mg/dL (1.8-2.4); PHOSPHOROUS 3.2 mg/dL (2.5-4.9); POTASSIUM 3.4 mmol/L (3.5-5.1); SODIUM SERUM 140 mmol/L (136-145); TOTAL PROTEIN, SERUM 6.3 g/dL (6.4-8.2); TRIGLYCERIDES 107 MG/DL (30-150); UREA NITROGEN, BLOOD 27 mg/dL (7-18)
[2024-02-04 08:11] LABS: DIFFERENTIAL COMMENT 1
[2024-02-04] MEDS: JEVITY 1.2 1000 ML LIQUID GT PRN (08:41)
[2024-02-04 08:55] LABS: NT-PRO BNP 753 pg/mL (0-125)
[2024-02-04] MEDS: POTASSIUM CHLORIDE 20 MEQ POWDER PACKET GT ONE (09:21)
[2024-02-04 09:53] LABS: THYROID STIMULATING HORMONE 2.403 mIU/mL (0.358-3.740)
[2024-02-04 11:55] VITALS: BP 124/69; TEMP 98.4; O2SAT 96
[2024-02-04 16:30] VITALS: BP 130/71; TEMP 100; O2SAT 95
[2024-02-04 16:41] VITALS: O2SAT 97
[2024-02-04 19:41] VITALS: BP 102/63; TEMP 97.1; O2SAT 95
[2024-02-05] VITALS (7 sets, daily range): BP systolic 98–128; BP diastolic 57–76; TEMP 96.8–98.2; O2SAT 95–97
[2024-02-05 06:41] LABS: BASOPHILS % (AUTO) 0.3 % (0.0-2.0); EOSINOPHILS # (AUTO) 0.2 K/uL (0.0-0.7); EOSINOPHILS % (AUTO) 2.4 % (0.0-7.0); HEMATOCRIT 35.7 % (36.7-47.1); HEMOGLOBIN 12.1 g/dL (12.5-16.3); LYMPHOCYTES # (AUTO) 1.7 K/uL (0.8-4.8); LYMPHOCYTES % (AUTO) 20.4 % (20.5-51.5); MEAN CORPUSCULAR HEMOGLOBIN 31.6 uug (23.8-33.4); MEAN CORPUSCULAR HGB CONC 34 g/dL (32.5-36.3); MEAN CORPUSCULAR VOLUME 92.8 fL (73.0-96.2); MONOCYTES # (AUTO) 1.1 K/uL (0.1-1.30); MONOCYTES % (AUTO) 13.9 % (0.0-11.0); NEUTROPHILS # (AUTO) 5.1 K/uL (1.8-8.9); PLATELET COUNT (AUTO) 306 K/uL (152-348); RED BLOOD CELL COUNT(AUTO) 3.85 MIL/uL (4.06-5.63); RED CELL DISTRIBUTION WIDTH 13.8 % (12.1-16.2); WHITE BLOOD COUNT (AUTO) 8.1 K/uL (3.6-10.2)
[2024-02-05 06:57] LABS: DIFFERENTIAL COMMENT 1
[2024-02-05 07:00] LABS: CARBON DIOXIDE 28 mmol/L (21-32); CHLORIDE 106 mmol/L (98-107); GLUCOSE 146 mg/dL (74-106); MAGNESIUM 2.1 mg/dL (1.8-2.4); PHOSPHOROUS 3.1 mg/dL (2.5-4.9); POTASSIUM 3.5 mmol/L (3.5-5.1); SODIUM SERUM 141 mmol/L (136-145); UREA NITROGEN, BLOOD 26 mg/dL (7-18)
[2024-02-06 01:52] VITALS: O2SAT 97
[2024-02-06 05:00] VITALS: BP 132/77; TEMP 97.5
[2024-02-06 06:58] LABS: BASOPHILS % (AUTO) 0.1 % (0.0-2.0); EOSINOPHILS # (AUTO) 0.3 K/uL (0.0-0.7); EOSINOPHILS % (AUTO) 3.4 % (0.0-7.0); HEMATOCRIT 36.8 % (36.7-47.1); HEMOGLOBIN 12.5 g/dL (12.5-16.3); LYMPHOCYTES # (AUTO) 1.5 K/uL (0.8-4.8); LYMPHOCYTES % (AUTO) 17.1 % (20.5-51.5); MEAN CORPUSCULAR HEMOGLOBIN 31.7 uug (23.8-33.4); MEAN CORPUSCULAR HGB CONC 34 g/dL (32.5-36.3); MEAN CORPUSCULAR VOLUME 93.4 fL (73.0-96.2); MONOCYTES # (AUTO) 1.1 K/uL (0.1-1.30); MONOCYTES % (AUTO) 12.1 % (0.0-11.0); NEUTROPHILS % (AUTO) 67.3 % (38.5-71.5); PLATELET COUNT (AUTO) 321 K/uL (152-348); RED BLOOD CELL COUNT(AUTO) 3.94 MIL/uL (4.06-5.63); RED CELL DISTRIBUTION WIDTH 14.1 % (12.1-16.2); WHITE BLOOD COUNT (AUTO) 8.9 K/uL (3.6-10.2)
[2024-02-06 07:15] LABS: DIFFERENTIAL COMMENT 1
[2024-02-06 07:17] LABS: ALANINE AMINOTRANSFERASE 30 U/L (16-63); ALBUMIN 2.3 g/dL (3.4-5.0); ALKALINE PHOSPHATASE 80 U/L (50-136); ASPARTATE AMINOTRANSFERASE 29 U/L (15-37); BILIRUBIN,TOTAL 0.9 mg/dL (0.2-1.0); CALCIUM 9.1 mg/dL (8.5-10.1); CARBON DIOXIDE 28 mmol/L (21-32); CHLORIDE 106 mmol/L (98-107); GLUCOSE 127 mg/dL (74-106); PHOSPHOROUS 3.2 mg/dL (2.5-4.9); POTASSIUM 3.8 mmol/L (3.5-5.1); SODIUM SERUM 141 mmol/L (136-145); TOTAL PROTEIN, SERUM 6.7 g/dL (6.4-8.2); UREA NITROGEN, BLOOD 24 mg/dL (7-18)
[2024-02-06 16:30] VITALS: O2SAT 97
[2024-02-06 18:08] VITALS: TEMP 97.5
[2024-02-06 20:00] VITALS: BP 110/70; TEMP 97.3; O2SAT 97
[2024-02-06 21:59] VITALS: O2SAT 98
[2024-02-07 05:40] VITALS: BP 110/64; TEMP 97.5
[2024-02-07 11:46] VITALS: BP 107/63; TEMP 97.9; O2SAT 97
[2024-02-07] MEDS ORDERED: PROT30LI PO (14:24)
[2024-02-07] MEDS ORDERED: ATOR10TA NG (14:24)
[2024-02-07] MEDS ORDERED: ASPI-1101 PO (14:24)
[2024-02-07] MEDS ORDERED: LAMO200T10 PO (14:24)
[2024-02-07] MEDS ORDERED: METO50TA16 PO (14:24)
[2024-02-07] MEDS ORDERED: LOSA25TA27 PO (14:24)
[2024-02-07] MEDS ORDERED: QUET25TA PO (14:24)
[2024-02-07 15:41] VITALS: O2SAT 98
[2024-02-07 15:52] VITALS: TEMP 97.3
[2024-02-07 16:00] VITALS: BP 110/60; TEMP 97.6; O2SAT 92
== END 2024-02-07 17:15 | disposition home health service (06) | DRG 871 ==
LOC: ER 07:39 → TELE3 11:30 → TELE-TD3 01-28 20:49 → TELE3 01-28 22:18 → CCU 01-30 12:40 → TELE3 02-03 18:19 → MEDSURG3 02-04 08:15
PROVIDERS: ADMIT Nurse Practitioner Acute Care; ATTEND Nurse Practitioner Acute Care
DX: A41.9 Sepsis, unspecified organism (principal); G92.8 Other toxic encephalopathy; N17.0 Acute kidney failure with tubular necrosis; J69.0 Pneumonitis due to inhalation of food and vomit; J96.01 Acute respiratory failure with hypoxia; I50.21 Acute systolic (congestive) heart failure; J18.9 Pneumonia, unspecified organism; F02.811 Dementia in other diseases classified elsewhere, unspecified severity, with agitation; F03.93 Unspecified dementia, unspecified severity, with mood disturbance; I47.10 Supraventricular tachycardia, unspecified; E87.0 Hyperosmolality and hypernatremia; F33.3 Major depressive disorder, recurrent, severe with psychotic symptoms; K59.00 Constipation, unspecified; M51.360 Other intervertebral disc degeneration, lumbar region with discogenic back pain only; M48.061 Spinal stenosis, lumbar region without neurogenic claudication; I11.0 Hypertensive heart disease with heart failure; R13.10 Dysphagia, unspecified; Z78.1 Physical restraint status; G20.A1 Parkinson's disease without dyskinesia, without mention of fluctuations; G31.83 Neurocognitive disorder with Lewy bodies; G31.09 Other frontotemporal neurocognitive disorder; R29.6 Repeated falls; E78.5 Hyperlipidemia, unspecified; M51.361 Other intervertebral disc degeneration, lumbar region with lower extremity pain only; M89.8X9 Other specified disorders of bone, unspecified site; R62.7 Adult failure to thrive; Z85.46 Personal history of malignant neoplasm of prostate; Z90.79 Acquired absence of other genital organ(s); M41.56 Other secondary scoliosis, lumbar region; K21.9 Gastro-esophageal reflux disease without esophagitis; D64.9 Anemia, unspecified; I49.3 Ventricular premature depolarization; F42.9 Obsessive-compulsive disorder, unspecified; E86.0 Dehydration; S81.811A Laceration without foreign body, right lower leg, initial encounter; W19.XXXA Unspecified fall, initial encounter; Z91.81 History of falling; Y92.009 Unspecified place in unspecified non-institutional (private) residence as the place of occurrence of the external cause
CPT/HCPCS: 36415; 36600; 70030-TC; 70450; 70551; 71045; 72131; 82803; 83605; 83735; 84100; 84443; 85025; 85730; 86803; 87040; 87806; 93005; 93307; 94640; 94664; A4606; A4663; A6213; G0378; J0278; J0282; J1200; J1630; J1650; J1940; J2060; J2358; J2543; J3480; J3590; J7040